=== PATIENT | male | born 1960 | race Caucasian/White ===

== ENCOUNTER 2018-01-20 06:25 | Inpatient (IN) ==
[~2018-01-20 06:25] MED LIST: ceFAZolin 1,000 MG, Sodium Chloride IRRigation 1,000 ML IR ONE
[2018-01-20] MEDS ORDERED: Famotidine 20 MG/2 ML VIAL IVP ONE (07:10)
[2018-01-20] MEDS ORDERED: Acetaminophen IV 1,000 MG/100 ML INFUS..BTL IVPB ONE (07:11)
--- NOTE | 2018-01-20 07:14 | Anesthesia Evaluation PreOp ---
Date of Encounter: 01/20/18 Time of Encounter: 07:12 - Past History Planned Operation: R-CEA Cardiac History: HTN, Hyperlipidemia Pulmonary History: Smoker (1ppd x 40yrs) HEALTHCARE ECONOMICS MANAGER History: Denies Any Significant HX Other Medical History: Denies Any Significant HX Anesthesia History: No Prior Anesthetic Complications, Past Anesthesia Alcohol Use: none Drug use: none Medications and Allergies Albuterol Sulfate [Albuterol Inhaler] 2 puff IH Q4HR PRN 01/16/18 [History] Albuterol Sulfate [Proair Hfa] 1 puff IH Q6H PRN 01/16/18 [History] Aspirin [Adult Aspirin Regimen] 81 mg PO DAILY 01/16/18 [History] Beclomethasone Diprop 40mcg [QVAR 40 mcg] 1 puff IH BID 01/16/18 [History] Clopidogrel Bisulfate [Plavix] 75 mg PO DAILY #30 tablet 01/16/18 [Rx] Fluticasone/Vilanterol [Breo Ellipta 200-25 Mcg INH] 1 each IH DAILY PRN [History] Losartan/Hydrochlorothiazide [Losartan-Hctz 100-25 mg Tab] 1 each PO DAILY 01/16 [History] Nicotine Patch [Nicoderm] 21 mg TD DAILY 01/16/18 [History] Simvastatin [Zocor] 20 mg PO HS 01/16/18 [History] 3 Allergy/AdvReac Type Severity Reaction Status Date / Time No Known Allergies Allergy Unverified 11/04/17 09:24 - Meds/Allergy Pre-op Review Medications Reviewed: Yes Allergies Reviewed: Yes Beta Blockers on Current Med List: No Anesthesia Results - Labs Laboratory Tests 01/15/18 01/15/18 01/15/18 11:43 11:43 11:43 WBC 9.4 Hgb 13.7 Hct 38.6 Plt Count 394 PT 11.9 INR 1.1 APTT 38.6 H Sodium 127 L Potassium 3.8 Chloride 90 L Carbon Dioxide 30 H BUN 10 Creatinine 1.09 Est GFR (Non-Af Amer) > 60 Glucose 119 H - Imaging EKG: report reviewed (61bpm SINUS RHYTHM BORDERLINE RIGHT AXIS DEVIATION PATTERN CONSISTENT WITH PULMONARY DISEASE Electronically Signed On 01-15-2018 15: 35:22 EDT by Sandy Razo), image reviewed Additional studies: ECHO 12/12/2017 EV/EV echocardiogram Impressions: LVEF 50%. Mild left ventricular diastolic dysfunction. Normal right ventricular structure and function. No significant valvular dysfunction. No pulmonary hypertension. There is a trivial pericardial effusion present along inferior border of RV. There is no echocardiographic evidence of tamponade. Left Ventricular Wall Motion: Rest Echo Findings All wall segments showed normal motion. Anesthesia Exam O2 Sat Height 1.7 m Height 1.7 m Weight 48.081 kg Weight 48.081 kg O2 Sat by Pulse Oximetry 97 Vital Signs Temp Pulse Resp BP Pulse Ox 97.8 F 82 18 159/94 97 01/20/18 07:09 01/20/18 07:09 01/20/18 07:09 01/20/18 07:09 01/20/18 07:09 Height: 5'7" Weight: 106# BMI = 17 NPO (# of Hours): MNOc - HEENT Pupil (Motor): Pupils equal, EOMI Mallampati: II Teeth: Normal Oral Opening: Greater than 3 - HEALTHCARE ECONOMICS MANAGER LOC: Oriented HEALTHCARE ECONOMICS MANAGER Motor: Normal RUE, Normal LUE, Normal RLE, Normal LLE, Normal Face HEALTHCARE ECONOMICS MANAGER Sensory: Normal: RUE, LUE, RLE, LLE, Face - Cardiac Rhythm: Regular Murmur: None JVD: No - Pulmonary Breath Sounds: bilateral Clear Respiratory Effort: Symmetrical Anesthesia Assess/Plan ASA Score: 3 (PVDZ, Smoker, COPD, HTN, Chol) Modified [place] Scale for Level of Consciousness: Cooperative, oriented, and tranquil Anesthetic Plan: General Monitoring Plan: Standard Monitors Recovery Plan: PACU Anes Supervising Prov Stmt: Pt seen/evaluated, R&B discussed, questions answered and consent obtained. Paul Hirsch MD
[2018-01-20] MEDS ORDERED: Heparin 1,000 UNITS/500 mL 1,500 ML ONE (07:19)
[2018-01-20] MEDS ORDERED: Lidocaine 1% 20 ML MDV ONE (07:19)
[2018-01-20] MEDS ORDERED: Ondansetron 4 MG/2 ML VIAL ONE (07:28)
[2018-01-20] MEDS ORDERED: *HR* FentaNYL (PF) 100 MCG/2 ML VIAL ONE (07:28)
[2018-01-20] MEDS ORDERED: *HR* Propofol 200 MG/20 ML VIAL IVP ONE (07:28)
[2018-01-20] MEDS ORDERED: *HR* Succinylcholine 200 MG/10 ML VIAL IVP ONE (07:28)
[2018-01-20] MEDS ORDERED: Dexamethasone 4 MG/ML VIAL ONE (07:28)
[2018-01-20] MEDS ORDERED: Lidocaine -MPF 4% 5 ML AMPUL ONE (07:28)
[2018-01-20] MEDS ORDERED: Lidocaine -MPF 2% 2 ML VIAL ONE (07:28)
[2018-01-20] MEDS ORDERED: *HR* Remifentanil 2 MG VIAL IVP ONE (07:37)
[2018-01-20] MEDS ORDERED: Albuterol 2.5 MG/3 ML NEBULIZER IH ONE (07:38)
[2018-01-20] MEDS ORDERED: CeFAZolin Syr 2,000MG/20 ML 2,000 MG/20 ML SYRINGE IVPB ONE (07:38)
--- NOTE | 2018-01-20 07:39 | History & Physical Report ---
Date of Encounter: 01/20/18 Time of Encounter: 07:25 24 Hour HP Update - Instructions Instructions: If the History and Physical is less than 30 days old and was completed prior to A.M. admission and or procedure and has NOT been updated on calendar day of procedure please complete this update prior to performing procedure. - Update Patient reports changes in Medical Condition: No Changes in examination, assessment, or condition: No Changes in Medication: No Preop tests/diagnostics Reviewed: Yes Surgery Remains Indicated: Yes Consent for Planned Operative Procedure(s) Verified: Yes - Pre-Operative Checklist Preoperative Checklist Indicated: Yes Prophylactic Antibiotic Ordered: Yes Home Medications Include Beta Nolvia: No Beta Nolvia Taken Today (Day of Surgery): No Beta Nolvia Taken Yesterday (Day Prior to Surgery): No Is VTE Prophylaxis Indicated?: Yes
[2018-01-20] MEDS ORDERED: *HR* Phenylephrine 10 MG/ML VIAL ONE (07:40)
[2018-01-20] MEDS ORDERED: Albuterol 2.5 MG/3 ML NEBULIZER ONE (07:40)
[2018-01-20] MEDS: Ringers Solution, Lactated 1,000 ML IVC SCH ×2 (07:43→13:21)
[2018-01-20] MEDS ORDERED: EPHEDrine 50 MG/ML VIAL ONE (08:24)
[2018-01-20] MEDS ORDERED: *HR* Heparin 5,000 UNIT/ML VIAL ONE ×2 (08:52→10:11)
[2018-01-20] MEDS ORDERED: *HR* Promethazine 25 MG/ML VIAL IVP PRN (09:20)
[2018-01-20] MEDS ORDERED: *HR* OxyCODONE Immed Rel 5 MG TABLET PO PRN (09:20)
[2018-01-20] MEDS ORDERED: *HR* Morphine 2 MG/ML SYRINGE IVP PRN (09:20)
[2018-01-20] MEDS ORDERED: *HR* Labetalol 20 MG/4 ML SYRINGE IVP PRN ×2 (09:20→15:20)
[2018-01-20] MEDS ORDERED: Protamine Sulfate 50 MG/5 ML VIAL IVP ONE (11:13)
[2018-01-20] MEDS ORDERED: NiCARdipine 2.5 MG/10 ML Syringe IVPB ONE (11:22)
--- NOTE | 2018-01-20 12:25 | Operative Note ---
Date of procedure: 01/20/18 Pre-op diagnosis: right carotid stenosis Post-op diagnosis: same Procedure: right carotid endarterectomy with 8-Kyrgyz shunt and bovine pericardial patch angioplasty Complications: 0 Anesthesia: GETA Surgeon: Lauro Young Was there an volleyball assistant coach present: No Estimated blood loss (cc): 150 Specimen: 0 Condition: stable Disposition: PACU Procedure in Detail: History Mr. Wagner Ramesh is a 57-year-old white male who was found to have a markedly abnormal carotid artery duplex scan. This then led to a carotid angiogram. He carotid artery angiogram indicated a critical stenosis of the right internal carotid artery. The patient now comes for surgical correction of this lesion. Procedure After informed consent was obtained the patient was taken to the operating room. General endotracheal anesthesia was established under arterial line pressure monitoring. The right neck was sterilely prepped and draped. A timeout protocol was observed. An oblique incision was then made parallel to the anterior border of the right sternocleidomastoid muscle. Dissection was carried down to the carotid sheath which was then opened. The nerves were identified and preserved. Dissection was then made of the carotid vessels and control obtained with Vesseloops. 5000 units of heparin were then administered intravenously. After 3 minutes later the vessels were clamped with the internal carotid artery clamped first. Using an 11 blade knife and Reddy scissors the artery was opened in a longitudinal fashion beginning at the distal aspect of the right common carotid artery. An 8-Kyrgyz shunt was then inserted atraumatically. Patency of the shunt was confirmed by the use of intraoperative Doppler. Inspection of the plaque revealed a soft high-grade plaque at the orifice of the right internal carotid artery. There was no intraluminal thrombus identified. The endarterectomy was then begun at the distal aspect of the common carotid artery. A dissection plane was established and this was carried proximally and distally. The external carotid and superior thyroid orifices were endarterectomized. The dissection was then carried up on into the right internal carotid artery. The endpoint was smooth. There were no tacking sutures necessary. The bed of the vessel was then inspected for any residual debris. Once this was removed the area was flushed with a copious amount of heparinized saline. A patch angioplasty was then performed using a bovine pericardial patch and 2 6-0 Prolene sutures. Leaving a small space open on the suture line the shunt was clamped divided and removed. The final few sutures were then placed. The internal was allowed to back flushed and was reclamped. The external and common were opened and finally the internal was reopened. The patient had no hemodynamic distress with this maneuver. Excellent pulses were identified by palpation and by Doppler signal. The wound was then irrigated. A superficial cervical block using half percent Marcaine was performed. The patient had significant oozing from the suture line due to his recent addition of Plavix to his drug regimen. This required a prolonged period of time using topical agents to decrease the flow as well as the use of one dose of protamine. After this was done the wound was irrigated with antibiotic containing solution. It was closed in layers using absorbable suture. A dry sterile dressing was applied. The patient was then reversed from anesthesia Needed on the operating room table. He was found to be neurologically intact. He was taken from the operating room to the recovery room in stable condition.
--- NOTE | 2018-01-20 13:13 | Anesthesia Evaluation Post Op ---
Date of Encounter: 01/20/18 Time of Encounter: 13:12 - Vital Signs Vital Signs: Vital Signs/O2 Sat/Glucose, Most Recent Temp Pulse Resp BP Pulse Ox 97.5 F L 52 16 92/62 96 01/20/18 13:07 01/20/18 13:07 01/20/18 13:07 01/20/18 13:07 01/20/18 13:07 - Lungs Lungs: Clear Ascult./Percussion - Airway Airway: Non-obstructed - Cardiovascular Regular Rate, Baseline Rhythm - Mental Status Mental Status: Alert & Oriented, Answers Appropriately - Pain Pain Scale: 0 - Nausea Vomiting Nausea Vomiting: Not Present - Hydration Hydration: Ice chips, Yoon catheter Notes: 01/20/18 13:12 Patient Stable. Awake and Alert X3 Tolerated general anesthesia well
[2018-01-20] MEDS ORDERED: Naloxone 0.4 MG/ML INJ IVP PRN (15:20)
[2018-01-20] MEDS ORDERED: Ondansetron 4 MG/2 ML VIAL IVP PRN (15:20)
[2018-01-20] MEDS ORDERED: Acetaminophen 325 MG TABLET PO PRN (15:20)
[2018-01-20] MEDS ORDERED: 0.9 % Sodium Chloride 1,000 ML IVC SCH (15:20)
[2018-01-20] MEDS ORDERED: 0.9 % Sodium Chloride 1,000 ML ONE (15:23)
[2018-01-20] MEDS: *HR* HYDROcodone/Acet 5/325 mg TABLET PO PRN (20:41)
[2018-01-20] MEDS: Beclomethasone 40mcg REDIHALER IH SCH (21:51)
[2018-01-21] MEDS: *HR* HYDROcodone/Acet 5/325 mg TABLET PO PRN ×2 (02:45→09:32)
[2018-01-21 04:48] LABS: Basophils % 0.1 %; Hematocrit 24.1 % (37.5-50.1); Immature Granulocytes % 0.6 % (0-4); Lymphocytes # 1.4 K/mcL (0.6-4.6); Lymphocytes % 11.2 %; Mean Corpuscular HGB Conc 36.9 g/dL (31.6-35.5); Mean Corpuscular Hemoglobin 32.4 pg (28.0-33.3); Mean Corpuscular Volume 87.6 fL (83.0-100.0); Mean Platelet Volume 9.8 fL (9.4-12.4); Monocytes # 0.7 K/mcL (0.0-1.3); Monocytes % 5.8 %; Neutrophils # 10.4 K/mcL (1.6-8.9); Platelet Count 222 K/mcL (140-400); Red Blood Count 2.75 M/mcL (4.19-5.50); Red Cell Distribution Width 13.6 % (11.5-14.5); Segmented Neutrophils % 82.3 %
[2018-01-21 04:52] LABS: Hemoglobin 8.9 g/dL (12.9-16.9)
[2018-01-21 06:57] LABS: Blood Urea Nitrogen 9 mg/dL (6-20); Carbon Dioxide 26 mEq/L (23-29); Chloride 95 mEq/L (98-107); Glucose 133 mg/dL (70-105); Osmolality,Calculated 267 (280-300); Potassium 3.2 mEq/L (3.5-5.1); Sodium 128 mEq/L (136-145)
[2018-01-21 06:58] LABS: Calcium 8.6 mg/dL (8.6-10.3)
[2018-01-21 07:41] LABS: BUN/Creatinine Ratio 11 (6-26); eGFR For Non-African Americans > 60 (> 60)
[2018-01-21] MEDS: Beclomethasone 40mcg REDIHALER IH SCH (07:55)
[2018-01-21] MEDS ORDERED: Losartan/HCTZ 50-12.5 TABLET PO SCH (09:00)
[2018-01-21] MEDS ORDERED: Nicotine 21 MG PATCH.TD24 TD SCH (09:00)
[2018-01-21] MEDS ORDERED: (Fluticasone/Vilanterol [Breo Ellipta 200-25 Mcg Inh] IH PRN (10:00)
[2018-01-21 11:07] VITALS: BP 135/74
--- NOTE | 2018-01-21 12:50 | Discharge Summary ---
Date of Encounter: 01/21/18 Time of Encounter: 12:47 - Discharge Diagnosis (1) Bilateral carotid artery stenosis Priority: Primary Status: Acute Comments: Patient has bilateral carotid artery disease. The right side was critically stenotic. He underwent a right carotid endarterectomy during this hospitalization. (2) Hyponatremia Priority: Secondary Status: Acute Comments: Patient has asymptomatic hyponatremia. Preoperative sodium was 127 and postoperative sodium was 128. (3) COPD (chronic obstructive pulmonary disease) Priority: Secondary Status: Chronic Comments: The patient has chronic COPD Qualifiers: COPD type: unspecified COPD Qualified Code(s): J44.9 - Chronic obstructive pulmonary disease, unspecified (4) PAD (peripheral artery disease) Priority: Secondary Status: Chronic Comments: Patient has right common iliac artery system occlusion. Anticipate future revascularization for right lower extremity once the patient has healed from the right carotid endarterectomy - Hospital Course Hospital course: Mr. Ramesh is a 57 year old male With severe right carotid artery disease. Patient was admitted for urgent right carotid endarterectomy due to the critical nature of the stenosis. This surgery was performed yesterday without event. Patient has uneventful postoperative recovery. Patient was felt fit for discharge in the afternoon of postoperative day #1. Instructions were given in regards to activity and wound care and medications prior to patient discharge. - Time Spent with Patient Total time spent providing and/or coordinating discharge services: - Discharge Medications Prescriptions: HYDROcodone/Acet 5/325 mg [Mcgregor 5-325 mg] 1 tab PO Q6HR PRN 7 Days #10 tablet PRN Reason: Moderate Pain Home Medications: Albuterol Sulfate [Albuterol Inhaler] 2 puff IH Q4HR PRN 01/16/18 [History] Albuterol Sulfate [Proair Hfa] 1 puff IH Q6H PRN 01/16/18 [History] Aspirin [Adult Aspirin Regimen] 81 mg PO DAILY 01/16/18 [History] Beclomethasone Diprop 40mcg [QVAR 40 mcg] 1 puff IH BID 01/16/18 [History] Clopidogrel Bisulfate [Plavix] 75 mg PO DAILY #30 tablet 01/16/18 [Rx] Fluticasone/Vilanterol [Breo Ellipta 200-25 Mcg INH] 1 each IH DAILY PRN [History] Losartan/Hydrochlorothiazide [Losartan-Hctz 100-25 mg Tab] 1 each PO DAILY 01/16 [History] Nicotine Patch [Nicoderm] 21 mg TD DAILY 01/16/18 [History] Simvastatin [Zocor] 20 mg PO HS 01/16/18 [History] HYDROcodone/Acet 5/325 mg [Mcgregor 5-325 mg] 1 tab PO Q6HR PRN 7 Days #10 tablet 01/21/18 [Rx] Allergies/Adverse Reactions: 3 Allergy/AdvReac Type Severity Reaction Status Date / Time No Known Allergies Allergy Unverified 11/04/17 09:24 Date of admission: 01/20/18 13:50 Primary care physician: Catherine Mckeon CNP Consults: None Procedure(s) Performed: Right carotid endarterectomy with bovine patch angioplasty Discharging clinician: Lauro Young Anticipated date of discharge: 01/21/18 Exam Vital Signs, Last 4 Hours Temp Pulse Resp BP Pulse Ox 01/21/18 11:46 54 01/21/18 11:04 98.0 F 56 18 135/74 97 General: Present: Conversant, No Apparent Distress HEENT: Present: Atraumatic, Normocephaly Neck: Absent: JVD Cardiac: Present: Reg Rate and Rhythm Lungs: Present: Decreased breath sounds Neuro: Present: Alert and responsive, No focal deficits noted, Cranial nerves grossly intact, Motor nerves grossly intact, Sensory nerves grossly intact Vascular: Present: Surgical incisions (Patient has mild ecchymosis with a small amount of swelling along the right neck incision. No tracheal deviation.) - Patient Status Disposition: Home, Self-Care Condition: Good Functional capacity at discharge: independent ambulation Overall status at discharge: patient is progressing back to baseline - Discharge Instructions Follow Up With: Catherine Mckeon CNP [Primary Care Provider] - 01/28/18 1:00 pm Lauro Young MD [Partnered Physician] - 02/11/18 2:45 pm Additional Instructions: Keep right neck incision dry for total of 5 days following surgery Use ice pack on right neck for the next 2 days at home. Using incentive spirometer 10 times every hour while awake for the next 2 weeks. Then after 2 weeks discard the incentive spirometer. Resume usual home medications. No lifting greater than 10 pounds. No driving. No manual labor. - Diet and Activity Activity: increase activity as tolerated Diet: low fat, low cholesterol
== END 2018-01-21 13:46 | disposition home or self-care (01) | DRG 24 ==
LOC: SAMDAY 06:25 → 2NNU 13:50
PROVIDERS: ADMIT Surgery Vascular Surgery; ATTEND Surgery Vascular Surgery